=== PATIENT | female | born 1945 | race African-American/Black ===

== ENCOUNTER 2018-11-11 18:38 | Emergency (ER) | payer OTHER, MEDICARE ==
[~2018-11-11] VITALS: Ht 167.6 cm; Wt 59.0 kg
[~2018-11-11 18:38] MED LIST: AMLO5TAB4 PO; BENA40TA9 PO; METF-414 PO
[2018-11-11] MEDS ORDERED: ONDANSETRON HCL 4MG/2ML INJ IV STA (19:28)
[2018-11-11] MEDS ORDERED: SODIUM CHLORIDE 0.9% 1,000 ML IV ONE (19:28)
[2018-11-11] MEDS ORDERED: MECLIZINE 25MG TABLET PO ONE (19:30)
[2018-11-11 19:45] LABS: BASOPHILS % 0.8 % (0.0-2.0); EOSINOPHILS % 1.9 % (0.0-5.0); HEMATOCRIT. 41.4 % (36.0-48.0); HEMOGLOBIN. 14.1 g/dL (12.0-16.0); LYMPHOCYTES % 26.6 % (20.0-50.0); MEAN CORPUSCULAR HEMOGLOBIN 34.6 pg (28.0-32.0); MEAN CORPUSCULAR VOLUME 101.8 fL (81.0-99.0); MEAN PLATELET VOLUME 9.3 fl (7.4-10.4); MONOCYTES % 6.6 % (2.0-8.0); NEUTROPHILS % 64.1 % (40.0-76.0); PLATELET 202 x1000/uL (130-400); RED BLOOD CELL COUNT 4.07 mill/uL (4.2-5.4); RED CELL DISTRIBUTION WIDTH 12.4 % (11.6-14.6)
[2018-11-11 19:50] LABS: CHLORIDE 103 mEq/L (98-107)
[2018-11-11 20:58] VITALS: BP 107/58
== END 2018-11-11 21:16 | disposition home or self-care (01) ==
LOC: ER 18:38
DX: R42 Dizziness and giddiness (principal); E11.9 Type 2 diabetes mellitus without complications; I10 Essential (primary) hypertension; M10.9 Gout, unspecified; Z90.710 Acquired absence of both cervix and uterus; Z96.652 Presence of left artificial knee joint; Z79.84 Long term (current) use of oral hypoglycemic drugs
CPT/HCPCS: 36415; 71045; 80053; 83880; 84484; 85025; 93005; 96361; 96374; 99284; J2405; J7030; J8597

== ENCOUNTER 2019-01-30 15:56 | Emergency (ER) | payer OTHER, MEDICARE ==
[~2019-01-30] VITALS: Ht 167.6 cm; Wt 59.0 kg
[2019-01-30 16:13] VITALS: BP 141/68
== END 2019-01-30 19:04 | disposition left against medical advice (07) ==
LOC: ER 15:56
DX: R42 Dizziness and giddiness (principal); Z53.21 Procedure and treatment not carried out due to patient leaving prior to being seen by health care provider

== ENCOUNTER 2019-06-07 11:24 | Inpatient (IN) | payer MEDICARE, OTHER ==
[~2019-06-07] VITALS: Ht 172.7 cm; Wt 59.9 kg
[2019-06-07] MEDS ORDERED: SODIUM CHLORIDE 0.9% 1,000 ML IV ONE (11:51)
[2019-06-07] MEDS ORDERED: MECLIZINE 25MG TABLET PO ONE (12:00)
[2019-06-07] MEDS ORDERED: INSULIN REGULAR (HUMULIN R) UD 100 UNITS/ML SYR SUBCUT ONE ×2 (12:00→14:30)
[2019-06-07] MEDS ORDERED: INSULIN REGULAR (HUMULIN R) 300UNITS/3ML SUBCUT NR ×2 (12:30→15:15)
[2019-06-07 12:32] LABS: BASOPHILS % 2.9 % (0.0-2.0); EOSINOPHILS % 3.7 % (0.0-5.0); HEMATOCRIT. 43.5 % (36.0-48.0); HEMOGLOBIN. 14.7 g/dL (12.0-16.0); LYMPHOCYTES % 15.7 % (20.0-50.0); MEAN CORPUSCULAR HEMOGLOBIN 35.2 pg (28.0-32.0); MEAN PLATELET VOLUME 9.4 fl (7.4-10.4); MONOCYTES % 5.9 % (2.0-8.0); NEUTROPHILS % 71.8 % (40.0-76.0); PLATELET 180 x1000/uL (130-400); RED BLOOD CELL COUNT 4.18 mill/uL (4.2-5.4); RED CELL DISTRIBUTION WIDTH 12.7 % (11.6-14.6)
[2019-06-07 12:38] LABS: CHLORIDE 92 mEq/L (98-107)
[2019-06-07 14:59] LABS: CLARITY URINE CLEAR (CLEAR); COLOR URINE YELLOW (YELLOW); KETONES URINE 2+ (NEGATIVE); LEUKOCYTE ESTERASE URINE NEGATIVE (NEGATIVE); NITRITE URINE NEGATIVE (NEGATIVE); OCCULT BLOOD URINE NEGATIVE (NEGATIVE); PROTEIN URINE TRACE (NEGATIVE); SPECIFIC GRAVITY URINE 1.032 (1.005-1.030); UROBILINOGEN URINE 0.2 E.U./dL (0.2-1.0)
[2019-06-07 16:00] VITALS: BP 115/78
[2019-06-07] MEDS ORDERED: DEXTROSE 50% WATER 50ML SYRINGE IV PRN ×2 (16:30)
[2019-06-07] MEDS ORDERED: DIPHENHYDRAMINE 50MG/ML VIAL IV PRN (16:30)
[2019-06-07] MEDS ORDERED: ACETAMINOPHEN 325MG TABLET PO PRN (16:30)
[2019-06-07] MEDS ORDERED: CLONIDINE 0.1MG TABLET PO PRN (16:30)
[2019-06-07] MEDS ORDERED: DOCUSATE SODIUM 100MG CAPSULE PO PRN (16:30)
[2019-06-07] MEDS ORDERED: ONDANSETRON HCL 4MG/2ML INJ IV PRN (16:30)
[2019-06-07] MEDS ORDERED: MAGNESIUM/ALUMINUM HYDROXIDE/SIMETHICONE 30ML UDC PO PRN (16:30)
[2019-06-07] MEDS: BLOOD SUGAR DIAGNOSTIC STRIP TEST SCH ×2 (17:11→20:36)
[2019-06-07 17:25] VITALS: BP 115/78
[2019-06-07] MEDS: INSULIN LISPRO 100 UNITS/ML SUBCUT SCH ×2 (18:46→20:46)
[2019-06-07 20:00] VITALS: BP 93/54
[2019-06-07] MEDS: SODIUM CHLORIDE 0.9% 1,000 ML IV SCH (20:36)
[2019-06-07] MEDS ORDERED: INSULIN GLARGINE UD 100 UNITS/ML SYR SUBCUT SCH (22:00)
[2019-06-07 23:49] VITALS: BP 95/56
[2019-06-08 04:09] VITALS: BP 128/71
[2019-06-08] MEDS: BLOOD SUGAR DIAGNOSTIC STRIP TEST SCH ×4 (06:16→21:20)
[2019-06-08] MEDS: INSULIN LISPRO 100 UNITS/ML SUBCUT SCH ×4 (06:19→21:29)
[2019-06-08 08:00] VITALS: BP 129/64
[2019-06-08 08:02] LABS: EOSINOPHILS % 8.7 % (0.0-5.0); HEMATOCRIT. 38.7 % (36.0-48.0); HEMOGLOBIN. 13.4 g/dL (12.0-16.0); LYMPHOCYTES % 33.8 % (20.0-50.0); MEAN CORPUSCULAR HEMOGLOBIN 35.7 pg (28.0-32.0); MEAN CORPUSCULAR VOLUME 102.6 fL (81.0-99.0); MEAN PLATELET VOLUME 9.6 fl (7.4-10.4); MONOCYTES % 8.6 % (2.0-8.0); NEUTROPHILS % 47.9 % (40.0-76.0); PLATELET 143 x1000/uL (130-400); RED BLOOD CELL COUNT 3.77 mill/uL (4.2-5.4)
[2019-06-08] MEDS: BENAZEPRIL 10MG TABLET PO SCH (08:26)
[2019-06-08] MEDS: AMLODIPINE 5MG TABLET PO SCH (08:26)
[2019-06-08 09:16] LABS: CHLORIDE 104 mEq/L (98-107)
[2019-06-08 09:26] LABS: PHOSPHORUS 1.8 mg/dL (2.5-4.9)
[2019-06-08 12:00] VITALS: BP 104/56
[2019-06-08] MEDS: SODIUM CHLORIDE 0.9% 1,000 ML IV SCH (12:47)
[2019-06-08] MEDS ORDERED: POTASSIUM PHOS,M-BASIC-D-BASIC 15 MMOL in DEXT 5% WATER 245 ML IV SCH (14:00)
[2019-06-08] MEDS ORDERED: MAGNESIUM 2 G PREMIX 50 ML IV SCH (14:00)
[2019-06-08 16:00] VITALS: BP 138/82
[2019-06-08 20:00] VITALS: BP_SYST 131; BP_DIAS 89; BP_DIAS 91
[2019-06-08] MEDS ORDERED: INSULIN GLARGINE UD 100 UNITS/ML SYR SUBCUT SCH (22:00)
[2019-06-08 23:47] VITALS: BP 105/55
[2019-06-09 04:00] VITALS: BP 95/51
[2019-06-09] MEDS: BLOOD SUGAR DIAGNOSTIC STRIP TEST SCH (06:02)
[2019-06-09] MEDS: INSULIN LISPRO 100 UNITS/ML SUBCUT SCH (06:13)
[2019-06-09] MEDS ORDERED: INSULIN LISPRO 100 UNITS/ML SUBCUT SCH (06:45)
[2019-06-09 06:49] LABS: EOSINOPHILS % 7.1 % (0.0-5.0); HEMATOCRIT. 39.6 % (36.0-48.0); HEMOGLOBIN. 13.9 g/dL (12.0-16.0); LYMPHOCYTES % 34.7 % (20.0-50.0); MEAN CORPUSCULAR VOLUME 102.2 fL (81.0-99.0); MEAN PLATELET VOLUME 9.1 fl (7.4-10.4); MONOCYTES % 8.9 % (2.0-8.0); NEUTROPHILS % 48.3 % (40.0-76.0); PLATELET 150 x1000/uL (130-400); RED BLOOD CELL COUNT 3.87 mill/uL (4.2-5.4); RED CELL DISTRIBUTION WIDTH 12.7 % (11.6-14.6)
[2019-06-09 06:53] LABS: CHLORIDE 105 mEq/L (98-107)
[2019-06-09 07:01] LABS: PHOSPHORUS 2.7 mg/dL (2.5-4.9)
[2019-06-09 08:07] LABS: CANCER ANTIGEN 125 9.7 U/mL (0.0-38.1)
[2019-06-09 08:30] VITALS: BP 121/67
[2019-06-09] MEDS: AMLODIPINE 5MG TABLET PO SCH (10:27)
[2019-06-09] MEDS: BENAZEPRIL 10MG TABLET PO SCH (10:28)
[2019-06-09 11:12] VITALS: BP 121/67
== END 2019-06-09 12:35 | disposition home or self-care (01) | DRG 638 ==
LOC: ER 11:24 → 5WST 14:56 → EDBEDREQ 14:59 → EDBEDREQTM 14:59 → ENRESERV 15:29
PROVIDERS: ADMIT Family Medicine Adult Medicine; ATTEND Family Medicine Adult Medicine
DX: E11.10 Type 2 diabetes mellitus with ketoacidosis without coma (principal); E46 Unspecified protein-calorie malnutrition; E87.1 Hypo-osmolality and hyponatremia; I10 Essential (primary) hypertension; E88.89 Other specified metabolic disorders; D75.89 Other specified diseases of blood and blood-forming organs; Z79.84 Long term (current) use of oral hypoglycemic drugs; Z90.710 Acquired absence of both cervix and uterus; Z79.899 Other long term (current) drug therapy; Z68.20 Body mass index [BMI] 20.0-20.9, adult
CPT/HCPCS: 36415; 71045; 71250; 74176; 80048; 80076; 81003; 82010; 82105; 82378; 82962; 83036; 83735; 83880; 84100; 84443; 84484; 86301; 86304; 93005; 93970; 96372; 97161; 99285; J1815; J3475; J3490; J7030; J7060; J8597

== ENCOUNTER 2020-11-02 16:52 | Inpatient (IN) | payer MEDICARE, OTHER ==
[~2020-11-02] VITALS: Ht 162.6 cm; Wt 62.1 kg
[2020-11-02] MEDS ORDERED: ACETAMINOPHEN 325MG TABLET PO STA (17:05)
[2020-11-02] MEDS ORDERED: CEFTRIAXONE 1 G PREMIX 50 ML IV ONE (17:15)
[2020-11-02] MEDS ORDERED: DEXAMETHASONE 4MG/ML 1ML VIAL IV ONE (17:15)
[2020-11-02 18:15] LABS: HEMATOCRIT. 39.7 % (36.0-48.0); HEMOGLOBIN. 13.2 g/dL (12.0-16.0); MEAN CORPUSCULAR HEMOGLOBIN 33.1 pg (28.0-32.0); MEAN CORPUSCULAR VOLUME 99.6 fL (81.0-99.0); MEAN PLATELET VOLUME 9.1 fl (7.4-10.4); PLATELET 170 x1000/uL (130-400); RED BLOOD CELL COUNT 3.98 mill/uL (4.2-5.4); RED CELL DISTRIBUTION WIDTH 12.7 % (11.6-14.6)
[2020-11-02 18:22] LABS: CHLORIDE 95 mEq/L (98-107)
[2020-11-02 18:25] LABS: ETHANOL BLOOD < 10 mg/dL
[2020-11-02 18:28] LABS: LDL CHOLESTEROL 81 mg/dL (5-100)
[2020-11-02 19:05] LABS: INR 1.1; PROTHROMBIN TIME 11.2 sec (9.6-11.0)
[2020-11-02 19:29] LABS: CLARITY URINE CLEAR (CLEAR); COLOR URINE YELLOW (YELLOW); KETONES URINE 1+ (NEGATIVE); LEUKOCYTE ESTERASE URINE NEGATIVE (NEGATIVE); NITRITE URINE NEGATIVE (NEGATIVE); OCCULT BLOOD URINE NEGATIVE (NEGATIVE); PH URINE 5.5 (4.5-8.0); PROTEIN URINE 1+ (NEGATIVE); SPECIFIC GRAVITY URINE 1.039 (1.005-1.030); UROBILINOGEN URINE 0.2 E.U./dL (0.2-1.0)
[2020-11-02] MEDS ORDERED: IOHEXOL-350 100 ML BOTTLE ONE (20:56)
[2020-11-02 21:30] LABS: PLATELET ESTIMATE NORMAL
[2020-11-02 21:57] LABS: CHLORIDE 98 mEq/L (98-107)
[2020-11-02] MEDS ORDERED: INSULIN LISPRO (HUMALOG) 300UNITS/3ML VIAL SUBCUT NR (23:15)
[2020-11-02] MEDS ORDERED: INSULIN LISPRO 100 UNITS/ML SUBCUT NR (23:42)
[2020-11-02] MEDS: SODIUM CHLORIDE 0.9% 1,000 ML IV SCH (23:47)
[2020-11-03] MEDS ORDERED: INSULIN GLARGINE UD 100 UNITS/ML SYR SUBCUT SCH (01:00)
[2020-11-03] MEDS ORDERED: SODIUM CHLORIDE 0.9% 1000ML BAG (SEPSIS BOLUS) IV SCH (03:00)
[2020-11-03] MEDS: AZITHROMYCIN 500 MG in DEXT 5% WATER 250 ML IV SCH (06:50)
[2020-11-03] MEDS: INSULIN LISPRO 100 UNITS/ML SUBCUT SCH ×3 (07:00→17:00)
[2020-11-03] MEDS: BLOOD SUGAR DIAGNOSTIC STRIP TEST SCH ×4 (08:00→21:50)
[2020-11-03] MEDS: ASPIRIN 81MG TABLET PO SCH (09:00)
[2020-11-03] MEDS: ENOXAPARIN 40MG/0.4ML SYR SUBCUT SCH (09:00)
[2020-11-03] MEDS: INSULIN GLARGINE UD 100 UNITS/ML SYR SUBCUT SCH (10:00)
[2020-11-03] MEDS: SODIUM CHLORIDE 0.9% 1,000 ML IV SCH (12:52)
[2020-11-04] MEDS: SODIUM CHLORIDE 0.9% 1,000 ML IV SCH ×2 (03:00→14:55)
[2020-11-04] MEDS: BLOOD SUGAR DIAGNOSTIC STRIP TEST SCH ×4 (04:28→21:00)
[2020-11-04] MEDS: INSULIN LISPRO 100 UNITS/ML SUBCUT SCH ×5 (04:29→21:00)
[2020-11-04] MEDS: INSULIN GLARGINE UD 100 UNITS/ML SYR SUBCUT SCH ×2 (04:29→09:54)
[2020-11-04] MEDS: DEXTROSE 50% WATER 50ML SYRINGE IV PRN ×3 (04:55→07:50)
[2020-11-04] MEDS: ATORVASTATIN CALCIUM 40MG TABLET PO SCH ×2 (05:03→22:00)
[2020-11-04] MEDS: AZITHROMYCIN 500 MG in DEXT 5% WATER 250 ML IV SCH (05:04)
[2020-11-04] MEDS: ASPIRIN 81MG TABLET PO SCH (09:54)
[2020-11-04] MEDS: ENOXAPARIN 40MG/0.4ML SYR SUBCUT SCH (09:54)
[2020-11-04 21:03] LABS: CHLORIDE 110 mEq/L (98-107)
[2020-11-05] MEDS: INSULIN LISPRO 100 UNITS/ML SUBCUT SCH ×4 (06:27→22:00)
[2020-11-05] MEDS: BLOOD SUGAR DIAGNOSTIC STRIP TEST SCH ×4 (06:27→21:26)
[2020-11-05 06:41] LABS: BASOPHILS % 0.7 % (0.0-2.0); HEMATOCRIT. 43.1 % (36.0-48.0); HEMOGLOBIN. 14.4 g/dL (12.0-16.0); LYMPHOCYTES % 24.1 % (20.0-50.0); MEAN CORPUSCULAR HEMOGLOBIN 33.6 pg (28.0-32.0); MEAN CORPUSCULAR VOLUME 100.2 fL (81.0-99.0); MEAN PLATELET VOLUME 9.3 fl (7.4-10.4); NEUTROPHILS % 61.2 % (40.0-76.0); PLATELET 158 x1000/uL (130-400); RED CELL DISTRIBUTION WIDTH 13.1 % (11.6-14.6)
[2020-11-05 06:48] LABS: CHLORIDE 109 mEq/L (98-107)
[2020-11-05] MEDS ORDERED: POTASSIUM CHLORIDE 20MEQ TABLET SR PO NR (09:15)
[2020-11-05 12:00] VITALS: BP 154/118
[2020-11-05] MEDS: ASPIRIN 81MG TABLET PO SCH (12:42)
[2020-11-05] MEDS: ENOXAPARIN 40MG/0.4ML SYR SUBCUT SCH (12:42)
[2020-11-05 16:00] VITALS: BP 131/63
[2020-11-05 16:51] VITALS: BP 154/86
[2020-11-05 20:00] VITALS: BP 100/45
[2020-11-05] MEDS: ATORVASTATIN CALCIUM 40MG TABLET PO SCH (21:23)
[2020-11-06] VITALS: BP 108/52
[2020-11-06] MEDS: SODIUM CHLORIDE 0.9% 1,000 ML IV SCH ×2 (02:37→21:30)
[2020-11-06 04:00] VITALS: BP 135/53
[2020-11-06] MEDS: INSULIN LISPRO 100 UNITS/ML SUBCUT SCH ×4 (06:46→21:31)
[2020-11-06] MEDS: BLOOD SUGAR DIAGNOSTIC STRIP TEST SCH ×4 (06:47→21:31)
[2020-11-06 08:00] VITALS: BP 121/66
[2020-11-06] MEDS: ENOXAPARIN 40MG/0.4ML SYR SUBCUT SCH (09:18)
[2020-11-06] MEDS: ASPIRIN 81MG TABLET PO SCH (09:18)
[2020-11-06 12:00] VITALS: BP 135/70
[2020-11-06 16:00] VITALS: BP 117/60
[2020-11-06 20:00] VITALS: BP 131/77
[2020-11-06] MEDS: ATORVASTATIN CALCIUM 40MG TABLET PO SCH (21:30)
[2020-11-06] MEDS: INSULIN GLARGINE UD 100 UNITS/ML SYR SUBCUT SCH (22:47)
[2020-11-07] VITALS: BP 143/67
[2020-11-07 04:00] VITALS: BP 155/69
[2020-11-07] MEDS: INSULIN LISPRO 100 UNITS/ML SUBCUT SCH ×4 (06:36→21:40)
[2020-11-07] MEDS: BLOOD SUGAR DIAGNOSTIC STRIP TEST SCH ×4 (06:37→21:41)
[2020-11-07 08:00] VITALS: BP 135/85
[2020-11-07] MEDS: ASPIRIN 81MG TABLET PO SCH (10:58)
[2020-11-07] MEDS: ENOXAPARIN 40MG/0.4ML SYR SUBCUT SCH (10:59)
[2020-11-07] MEDS: INSULIN GLARGINE UD 100 UNITS/ML SYR SUBCUT SCH ×2 (11:01→21:40)
[2020-11-07] MEDS: SODIUM CHLORIDE 0.9% 1,000 ML IV SCH ×2 (11:10→23:53)
[2020-11-07 12:00] VITALS: BP 128/115
[2020-11-07 16:00] VITALS: BP 145/74
[2020-11-07 20:00] VITALS: BP 139/64
[2020-11-07] MEDS: ATORVASTATIN CALCIUM 40MG TABLET PO SCH (21:39)
[2020-11-07] MEDS: LORAZEPAM 2MG/ML CPJ IV PRN (21:42)
[2020-11-08] VITALS: BP 127/57
[2020-11-08 04:00] VITALS: BP 147/72
[2020-11-08] MEDS: BLOOD SUGAR DIAGNOSTIC STRIP TEST SCH ×2 (06:42→11:45)
[2020-11-08] MEDS: INSULIN LISPRO 100 UNITS/ML SUBCUT SCH ×2 (06:42→13:47)
[2020-11-08 08:00] VITALS: BP 117/63
[2020-11-08] MEDS ORDERED: LANTUSUD SUBCUT (08:33)
[2020-11-08] MEDS: ENOXAPARIN 40MG/0.4ML SYR SUBCUT SCH (10:32)
[2020-11-08] MEDS: LORAZEPAM 2MG/ML CPJ IV PRN (10:33)
[2020-11-08] MEDS: INSULIN GLARGINE UD 100 UNITS/ML SYR SUBCUT SCH (10:34)
[2020-11-08] MEDS: ASPIRIN 81MG TABLET PO SCH (10:38)
[2020-11-08 12:00] VITALS: BP 152/63
[2020-11-08] MEDS: SODIUM CHLORIDE 0.9% 1,000 ML IV SCH (13:48)
[2020-11-08] MEDS ORDERED: INFLUENZA VACCINE 05/PF 0.5 ML VIAL IM ONE (14:30)
[2020-11-08 14:40] VITALS: BP 152/63
[2020-11-08 16:00] VITALS: BP 146/64
== END 2020-11-08 17:30 | disposition home health service (06) | DRG 637 ==
LOC: ER 16:52 → MICUSO 21:09 → EDBEDREQSVC 22:07 → EDBEDREQTM 22:07 → EDBEDREQ 22:07 → 5WST 11-05 07:55
PROVIDERS: ADMIT Internal Medicine; ATTEND Internal Medicine
DX: E11.65 Type 2 diabetes mellitus with hyperglycemia (principal); G93.41 Metabolic encephalopathy; E87.1 Hypo-osmolality and hyponatremia; E87.2 Acidosis; R47.01 Aphasia; E87.8 Other disorders of electrolyte and fluid balance, not elsewhere classified; I10 Essential (primary) hypertension; F03.90 Unspecified dementia, unspecified severity, without behavioral disturbance, psychotic disturbance, mood disturbance, and anxiety; Z90.710 Acquired absence of both cervix and uterus; Z79.84 Long term (current) use of oral hypoglycemic drugs; Z79.899 Other long term (current) drug therapy; Z20.822 Contact with and (suspected) exposure to COVID-19; Z23 Encounter for immunization
CPT/HCPCS: 36415; 70496; 70551; 71045; 80048; 80053; 80076; 80320; 81003; 82962; 83036; 83605; 83721; 84145; 84484; 85025; 87635; 90686; 93005; 97116; 97162; 97530; 99285; J0456; J0696; J1100; J1650; J1815; J2060; J7060; Q9967; G0480

== ENCOUNTER 2020-11-08 18:05 | Emergency (ER) | payer OTHER ==
[~2020-11-08] VITALS: Ht 167.6 cm; Wt 68.0 kg
[~2020-11-08 18:05] MED LIST changes: +LANTUSUD SUBCUT
[2020-11-08 22:00] LABS: HEMOGLOBIN. 12.8 g/dL (12.0-16.0); MEAN CORPUSCULAR HEMOGLOBIN 34.5 pg (28.0-32.0); MEAN CORPUSCULAR VOLUME 99.9 fL (81.0-99.0); MEAN PLATELET VOLUME 8.8 fl (7.4-10.4); PLATELET 159 x1000/uL (130-400); RED BLOOD CELL COUNT 3.71 mill/uL (4.2-5.4)
[2020-11-08 22:04] LABS: CHLORIDE 104 mEq/L (98-107)
[2020-11-08 22:31] LABS: PLATELET ESTIMATE NORMAL
[2020-11-09 16:32] VITALS: BP 154/79
== END 2020-11-09 16:34 | disposition home or self-care (01) ==
LOC: ER 18:05
DX: R53.1 Weakness (principal); E11.9 Type 2 diabetes mellitus without complications
CPT/HCPCS: 36415; 80048; 82962; 85025; 93005; 99285

== ENCOUNTER 2020-11-28 11:54 | Inpatient (IN) | payer OTHER ==
[~2020-11-28] VITALS: Ht 167.6 cm; Wt 69.4 kg
[2020-11-28] MEDS ORDERED: SODIUM CHLORIDE 0.9% 1,000 ML IV ONE (12:45)
[2020-11-28 12:46] LABS: BASOPHILS % 0.7 % (0.0-2.0); EOSINOPHILS % 1.1 % (0.0-5.0); HEMATOCRIT. 38.9 % (36.0-48.0); LYMPHOCYTES % 20.7 % (20.0-50.0); MEAN CORPUSCULAR HEMOGLOBIN 33.6 pg (28.0-32.0); MEAN CORPUSCULAR VOLUME 100.8 fL (81.0-99.0); MEAN PLATELET VOLUME 8.6 fl (7.4-10.4); MONOCYTES % 8.4 % (2.0-8.0); NEUTROPHILS % 69.1 % (40.0-76.0); PLATELET 228 x1000/uL (130-400); RED BLOOD CELL COUNT 3.85 mill/uL (4.2-5.4); RED CELL DISTRIBUTION WIDTH 13.5 % (11.6-14.6)
[2020-11-28 12:53] LABS: CHLORIDE 93 mEq/L (98-107)
[2020-11-28] MEDS ORDERED: INSULIN REGULAR (HUMULIN R) 300UNITS/3ML VIAL SUBCUT ONE (13:15)
[2020-11-28] MEDS ORDERED: DEXTROSE 50% WATER 50ML SYRINGE IV PRN (16:45)
[2020-11-28] MEDS ORDERED: ONDANSETRON HCL 4MG/2ML INJ IV PRN (16:45)
[2020-11-28] MEDS ORDERED: TRAMADOL 50MG TABLET PO PRN (16:45)
[2020-11-28] MEDS ORDERED: DOCUSATE SODIUM 100MG CAPSULE PO PRN (16:45)
[2020-11-28] MEDS ORDERED: MAGNESIUM/ALUMINUM HYDROXIDE/SIMETHICONE 30ML UDC PO PRN (16:45)
[2020-11-28] MEDS ORDERED: NITROGLYCERIN 0.4MG TABLET SL SL PRN (16:45)
[2020-11-28] MEDS ORDERED: ACETAMINOPHEN 325MG TABLET PO PRN ×2 (16:45)
[2020-11-28] MEDS ORDERED: CLONIDINE 0.1MG TABLET PO PRN (16:45)
[2020-11-28] MEDS ORDERED: GUAIFENESIN 200MG/10ML SUGAR FREE UDC PO PRN (16:45)
[2020-11-28] MEDS ORDERED: KETOROLAC 15MG/ML VIAL IV PRN (16:45)
[2020-11-28] MEDS ORDERED: IPRATROPIUM/ALBUTEROL 0.5-3(2.5)MG/3ML NEB NEB PRN (16:45)
[2020-11-28] MEDS ORDERED: LEVOFLOXACIN 500MG PREMIX 100 ML IV SCH (17:00)
[2020-11-28 17:33] LABS: T4 FREE 1.38 ng/dL (0.76-1.46)
[2020-11-28] MEDS: ENOXAPARIN 40MG/0.4ML SYR SUBCUT SCH (17:34)
[2020-11-28] MEDS: SODIUM CHLORIDE 0.9% 1,000 ML IV SCH (17:34)
[2020-11-28] MEDS: BLOOD SUGAR DIAGNOSTIC STRIP TEST SCH ×2 (17:34→21:00)
[2020-11-28 17:51] LABS: FOLIC ACID (FOLATE) SERUM >20 ng/mL ng/mL (>5.38)
[2020-11-28 18:02] LABS: VITAMIN B12 SERUM 618 pg/mL (211-911)
[2020-11-28] MEDS: INSULIN LISPRO 100 UNITS/ML SUBCUT SCH ×3 (18:20→21:00)
[2020-11-28 20:30] LABS: CLARITY URINE CLEAR (CLEAR); COLOR URINE YELLOW (YELLOW); KETONES URINE NEGATIVE (NEGATIVE); LEUKOCYTE ESTERASE URINE NEGATIVE (NEGATIVE); NITRITE URINE NEGATIVE (NEGATIVE); OCCULT BLOOD URINE NEGATIVE (NEGATIVE); PROTEIN URINE NEGATIVE (NEGATIVE); UROBILINOGEN URINE 0.2 E.U./dL (0.2-1.0)
[2020-11-28 20:59] LABS: METHADONE URINE SCREEN NEGATIVE (NEGATIVE); OPIATES URINE SCREEN NEGATIVE (NEGATIVE); PHENCYCLIDINE URINE SCREEN NEGATIVE (NEGATIVE)
[2020-11-28 21:00] LABS: *AMPHETAMINES SCREEN URINE NEGATIVE (NEGATIVE); *BARBITURATES SCREEN URINE NEGATIVE (NEGATIVE); *BENZODIAZEPINES SCREEN URINE NEGATIVE (NEGATIVE); *COCAINE SCREEN URINE NEGATIVE (NEGATIVE); CANNABINOID URINE SCREEN NEGATIVE (NEGATIVE)
[2020-11-28] MEDS: FAMOTIDINE 20MG TABLET PO SCH (21:00)
[2020-11-28] MEDS: ASCORBIC ACID 500 MG TABLET PO SCH (21:00)
[2020-11-28] MEDS: LISINOPRIL 20MG TABLET PO SCH (21:00)
[2020-11-28] MEDS ORDERED: INSULIN GLARGINE UD 100 UNITS/ML SYR SUBCUT SCH (22:00)
[2020-11-28 23:49] LABS: CREATINE KINASE 62 IU/L (26-192)
[2020-11-28 23:50] LABS: CREATINE KINASE MB FRACTION 1.3 ng/mL (0.5-3.6)
[2020-11-29] VITALS (8 sets, daily range): BP systolic 89–141; BP diastolic 43–70
[2020-11-29] MEDS: SODIUM CHLORIDE 0.9% 1,000 ML IV SCH ×2 (03:12→12:37)
[2020-11-29 05:10] LABS: BASOPHILS % 0.4 % (0.0-2.0); EOSINOPHILS % 2.1 % (0.0-5.0); HEMATOCRIT. 31.4 % (36.0-48.0); HEMOGLOBIN. 10.8 g/dL (12.0-16.0); LYMPHOCYTES % 26.6 % (20.0-50.0); MONOCYTES % 9.9 % (2.0-8.0); PLATELET 198 x1000/uL (130-400); RED BLOOD CELL COUNT 3.17 mill/uL (4.2-5.4); RED CELL DISTRIBUTION WIDTH 13.3 % (11.6-14.6)
[2020-11-29 05:13] LABS: CHLORIDE 107 mEq/L (98-107)
[2020-11-29 05:32] LABS: PHOSPHORUS 2.4 mg/dL (2.5-4.9)
[2020-11-29 05:34] LABS: CREATINE KINASE 55 IU/L (26-192)
[2020-11-29 05:37] LABS: CREATINE KINASE MB FRACTION 1.3 ng/mL (0.5-3.6)
[2020-11-29] MEDS: INSULIN LISPRO 100 UNITS/ML SUBCUT SCH ×8 (06:30→21:00)
[2020-11-29] MEDS: BLOOD SUGAR DIAGNOSTIC STRIP TEST SCH ×4 (06:30→21:41)
[2020-11-29] MEDS: ASPIRIN 325MG EC TABLET PO SCH (10:08)
[2020-11-29] MEDS: CHOLECALCIFEROL (D3) 1000 UNIT TABLET PO SCH (10:08)
[2020-11-29] MEDS: LISINOPRIL 20MG TABLET PO SCH ×2 (10:09→21:00)
[2020-11-29] MEDS: ASCORBIC ACID 500 MG TABLET PO SCH ×2 (10:09→21:39)
[2020-11-29] MEDS: ZINC SULFATE 220 MG ( 50 ) CAPSULE PO SCH (10:09)
[2020-11-29] MEDS ORDERED: LEVOFLOXACIN 750MG PREMIX 150 ML IV SCH (16:00)
[2020-11-29] MEDS: ENOXAPARIN 40MG/0.4ML SYR SUBCUT SCH (16:35)
[2020-11-29] MEDS: FAMOTIDINE 20MG TABLET PO SCH (21:39)
[2020-11-29] MEDS: INSULIN GLARGINE UD 100 UNITS/ML SYR SUBCUT SCH (21:44)
[2020-11-30] VITALS (9 sets, daily range): BP systolic 92–153; BP diastolic 49–78
[2020-11-30] MEDS: ZOLPIDEM TARTRATE 5MG TABLET PO PRN (00:01)
[2020-11-30] MEDS: SODIUM CHLORIDE 0.9% 1,000 ML IV SCH ×3 (00:17→23:30)
[2020-11-30] MEDS: INSULIN LISPRO 100 UNITS/ML SUBCUT SCH ×7 (07:30→21:00)
[2020-11-30] MEDS: BLOOD SUGAR DIAGNOSTIC STRIP TEST SCH ×4 (07:30→21:00)
[2020-11-30] MEDS: ASPIRIN 325MG EC TABLET PO SCH (09:19)
[2020-11-30] MEDS: CHOLECALCIFEROL (D3) 1000 UNIT TABLET PO SCH (09:19)
[2020-11-30] MEDS: ASCORBIC ACID 500 MG TABLET PO SCH ×2 (09:20→23:26)
[2020-11-30] MEDS: ZINC SULFATE 220 MG ( 50 ) CAPSULE PO SCH (09:20)
[2020-11-30] MEDS: LISINOPRIL 20MG TABLET PO SCH ×2 (09:20→21:00)
[2020-11-30] MEDS: ENOXAPARIN 40MG/0.4ML SYR SUBCUT SCH (17:36)
[2020-11-30] MEDS: FAMOTIDINE 20MG TABLET PO SCH (23:27)
[2020-11-30] MEDS: INSULIN GLARGINE UD 100 UNITS/ML SYR SUBCUT SCH (23:28)
[2020-12-01] VITALS (7 sets, daily range): BP systolic 108–145; BP diastolic 54–74
[2020-12-01] MEDS: INSULIN LISPRO 100 UNITS/ML SUBCUT SCH ×7 (07:30→22:06)
[2020-12-01] MEDS: BLOOD SUGAR DIAGNOSTIC STRIP TEST SCH ×4 (07:30→21:00)
[2020-12-01] MEDS: CHOLECALCIFEROL (D3) 1000 UNIT TABLET PO SCH (08:46)
[2020-12-01] MEDS: ASCORBIC ACID 500 MG TABLET PO SCH ×2 (08:46→21:44)
[2020-12-01] MEDS: ZINC SULFATE 220 MG ( 50 ) CAPSULE PO SCH (08:47)
[2020-12-01] MEDS: ASPIRIN 325MG EC TABLET PO SCH (08:47)
[2020-12-01] MEDS: LISINOPRIL 20MG TABLET PO SCH ×2 (08:47→21:00)
[2020-12-01] MEDS: SODIUM CHLORIDE 0.9% 1,000 ML IV SCH (15:00)
[2020-12-01] MEDS ORDERED: LEVOFLOXACIN 250MG TABLET PO SCH (16:00)
[2020-12-01] MEDS: ENOXAPARIN 40MG/0.4ML SYR SUBCUT SCH (18:09)
[2020-12-01] MEDS: FAMOTIDINE 20MG TABLET PO SCH (21:44)
[2020-12-01] MEDS: INSULIN GLARGINE UD 100 UNITS/ML SYR SUBCUT SCH (22:34)
[2020-12-02] VITALS: BP 112/63
[2020-12-02] MEDS: ZOLPIDEM TARTRATE 5MG TABLET PO PRN ×2 (00:30→23:57)
[2020-12-02] MEDS: SODIUM CHLORIDE 0.9% 1,000 ML IV SCH ×3 (01:00→21:00)
[2020-12-02 04:00] VITALS: BP 94/44
[2020-12-02] MEDS: INSULIN LISPRO 100 UNITS/ML SUBCUT SCH ×7 (07:30→22:05)
[2020-12-02 08:00] VITALS: BP 134/77
[2020-12-02] MEDS: BLOOD SUGAR DIAGNOSTIC STRIP TEST SCH ×4 (08:28→21:00)
[2020-12-02] MEDS: LISINOPRIL 20MG TABLET PO SCH ×2 (09:00→21:00)
[2020-12-02] MEDS: ZINC SULFATE 220 MG ( 50 ) CAPSULE PO SCH (09:00)
[2020-12-02] MEDS: CHOLECALCIFEROL (D3) 1000 UNIT TABLET PO SCH (09:00)
[2020-12-02] MEDS: ASCORBIC ACID 500 MG TABLET PO SCH ×2 (09:00→21:39)
[2020-12-02] MEDS: ASPIRIN 325MG EC TABLET PO SCH (09:00)
[2020-12-02 12:00] VITALS: BP 101/48
[2020-12-02 16:00] VITALS: BP 126/87
[2020-12-02] MEDS: ENOXAPARIN 40MG/0.4ML SYR SUBCUT SCH (18:49)
[2020-12-02 20:00] VITALS: BP 126/57
[2020-12-02] MEDS: FAMOTIDINE 20MG TABLET PO SCH (21:39)
[2020-12-02] MEDS: INSULIN GLARGINE UD 100 UNITS/ML SYR SUBCUT SCH (21:47)
[2020-12-03] VITALS: BP 118/75
[2020-12-03 04:00] VITALS: BP 128/57
[2020-12-03] MEDS: SODIUM CHLORIDE 0.9% 1,000 ML IV SCH (07:00)
[2020-12-03] MEDS: BLOOD SUGAR DIAGNOSTIC STRIP TEST SCH (07:30)
[2020-12-03 08:00] VITALS: BP 107/54
[2020-12-03] MEDS: INSULIN LISPRO 100 UNITS/ML SUBCUT SCH (08:47)
[2020-12-03 09:49] VITALS: BP 107/54
== END 2020-12-03 11:15 | disposition home or self-care (01) | DRG 91 ==
LOC: ER 12:13 → MICUSO 15:53 → SUPCPDRO 17:15 → 5EST 11-29 07:47
PROVIDERS: ADMIT Internal Medicine; ATTEND Internal Medicine
DX: G92 Toxic encephalopathy (principal); E11.00 Type 2 diabetes mellitus with hyperosmolarity without nonketotic hyperglycemic-hyperosmolar coma (NKHHC); E87.1 Hypo-osmolality and hyponatremia; E11.65 Type 2 diabetes mellitus with hyperglycemia; I10 Essential (primary) hypertension; F03.90 Unspecified dementia, unspecified severity, without behavioral disturbance, psychotic disturbance, mood disturbance, and anxiety; Z78.1 Physical restraint status; Z79.899 Other long term (current) drug therapy; Z90.710 Acquired absence of both cervix and uterus
CPT/HCPCS: 36415; 71045; 80053; 80061; 80305; 81003; 82550; 82553; 82607; 82746; 82962; 83036; 83540; 83550; 83615; 83735; 84100; 84145; 84439; 84443; 84484; 85025; 85379; 93005; 93306; 93970; 97116; 97162; 97166; 97530; 99285; J1650; J1815; J1956; J7030

== ENCOUNTER 2021-03-13 11:21 | Emergency (ER) | payer OTHER ==
[~2021-03-13] VITALS: Ht 162.6 cm; Wt 52.0 kg
[2021-03-13 15:32] VITALS: BP 144/84
== END 2021-03-13 16:35 | disposition home or self-care (01) ==
LOC: ER 11:27
DX: F43.0 Acute stress reaction (principal); F03.90 Unspecified dementia, unspecified severity, without behavioral disturbance, psychotic disturbance, mood disturbance, and anxiety; M19.90 Unspecified osteoarthritis, unspecified site; I10 Essential (primary) hypertension; E11.9 Type 2 diabetes mellitus without complications; K21.9 Gastro-esophageal reflux disease without esophagitis; F41.9 Anxiety disorder, unspecified; Z60.2 Problems related to living alone; Z87.891 Personal history of nicotine dependence; Z90.710 Acquired absence of both cervix and uterus; Z79.4 Long term (current) use of insulin
CPT/HCPCS: 99283

== ENCOUNTER 2021-03-21 11:40 | Emergency (ER) | payer OTHER ==
[~2021-03-21] VITALS: Ht 172.7 cm; Wt 69.0 kg
[2021-03-21] MEDS ORDERED: SODIUM CHLORIDE 0.9% 1,000 ML IV ONE (12:00)
[2021-03-21 12:27] LABS: BASOPHILS % 1.1 % (0.0-2.0); EOSINOPHILS % 1.4 % (0.0-5.0); HEMATOCRIT. 36.2 % (36.0-48.0); HEMOGLOBIN. 12.3 g/dL (12.0-16.0); LYMPHOCYTES % 29.6 % (20.0-50.0); MEAN CORPUSCULAR HEMOGLOBIN 31.2 pg (28.0-32.0); MEAN CORPUSCULAR VOLUME 91.4 fL (81.0-99.0); MEAN PLATELET VOLUME 9.7 fl (7.4-10.4); MONOCYTES % 7.1 % (2.0-8.0); NEUTROPHILS % 60.8 % (40.0-76.0); PLATELET 131 x1000/uL (130-400); RED BLOOD CELL COUNT 3.95 mill/uL (4.2-5.4)
[2021-03-21 12:34] LABS: CHLORIDE 103 mEq/L (98-107)
[2021-03-21 12:42] LABS: PHOSPHORUS 2.7 mg/dL (2.5-4.9)
[2021-03-21 12:47] LABS: BG CARBOXYHEMOGLOBIN 0.6 % (0.5-1.5); BG DEOXYHEMOGLOBIN 3.2 % (0.0-5.0); BG FRACTION INSPIRED OXYGEN 21; BG HCO3 ACT 25.3 mmol/L (22.0-26.0); BG METHEMOGLOBIN 0.2 % (0.0-1.5); BG OXYGEN SATURATION 96.8 % (92.0-98.5); BG PCO2 39.1 mmHg (35.0-45.0); BG PH 7.429 (7.350-7.450); BG PO2 92.1 mmHg (75.0-100.0); BG SAMPLE SITE RIGHT RADIAL; BG TOTAL HEMOGLOBIN 13.3 g/dL (12.0-18.0); BG VENT MODE ROOM AIR
[2021-03-21] MEDS ORDERED: INSULIN REGULAR (HUMULIN R) 300UNITS/3ML VIAL SUBCUT NR ×2 (13:00→17:15)
[2021-03-21 13:29] LABS: CLARITY URINE CLEAR (CLEAR); COLOR URINE YELLOW (YELLOW); KETONES URINE 1+ (NEGATIVE); LEUKOCYTE ESTERASE URINE NEGATIVE (NEGATIVE); NITRITE URINE NEGATIVE (NEGATIVE); OCCULT BLOOD URINE NEGATIVE (NEGATIVE); PH URINE 6.5 (4.5-8.0); PROTEIN URINE 1+ (NEGATIVE); SPECIFIC GRAVITY URINE 1.034 (1.005-1.030); UROBILINOGEN URINE 0.2 E.U./dL (0.2-1.0)
[2021-03-21] MEDS ORDERED: CEPH500C2 MT (14:11)
[2021-03-21 17:00] VITALS: BP 130/60
== END 2021-03-21 17:17 | disposition home or self-care (01) ==
LOC: ER 11:40
DX: E11.65 Type 2 diabetes mellitus with hyperglycemia (principal); N39.0 Urinary tract infection, site not specified; I10 Essential (primary) hypertension; F03.90 Unspecified dementia, unspecified severity, without behavioral disturbance, psychotic disturbance, mood disturbance, and anxiety; F41.9 Anxiety disorder, unspecified; M19.90 Unspecified osteoarthritis, unspecified site; K21.9 Gastro-esophageal reflux disease without esophagitis; F17.210 Nicotine dependence, cigarettes, uncomplicated; Z91.14 Patient's other noncompliance with medication regimen; Z90.710 Acquired absence of both cervix and uterus; Z79.84 Long term (current) use of oral hypoglycemic drugs
CPT/HCPCS: 36415; 36600; 71045; 80053; 81003; 82375; 82805; 82962; 83735; 84100; 84484; 85025; 93005; 96360; 96361; 99285; J1815; J7030

== ENCOUNTER 2022-09-26 11:39 | Inpatient (IN) | payer OTHER ==
[~2022-09-26] VITALS: Ht 165.1 cm; Wt 50.1 kg
[~2022-09-26 11:39] MED LIST changes: -BENA40TA9 PO; +BENA40TA91 PO; +CEPH500C2 MT
[2022-09-26] MEDS ORDERED: SODIUM CHLORIDE 0.9% 1,000 ML IV ONE (12:15)
[2022-09-26 14:22] LABS: BASOPHILS % 0.6 % (0.0-2.0); EOSINOPHILS % 1.1 % (0.0-5.0); HEMATOCRIT. 37.7 % (36.0-48.0); HEMOGLOBIN. 12.9 g/dL (12.0-16.0); LYMPHOCYTES % 19.3 % (20.0-50.0); MEAN CORPUSCULAR HEMOGLOBIN 33.5 pg (28.0-32.0); MONOCYTES % 7.7 % (2.0-8.0); NEUTROPHILS % 71.3 % (40.0-76.0); PLATELET 116 x1000/uL (130-400); RED BLOOD CELL COUNT 3.85 mill/uL (4.2-5.4); RED CELL DISTRIBUTION WIDTH 12.7 % (11.6-14.6)
[2022-09-26 14:29] LABS: CHLORIDE 102 mEq/L (98-107)
[2022-09-26 14:41] LABS: INR 1.2; PARTIAL THROMBOPLASTIN TIME 25.9 sec (23.4-31.0); PROTHROMBIN TIME 12.3 sec (9.6-11.0)
[2022-09-26 15:31] LABS: BETA HYDROXYBUTYRATE < 0.1 mMol/L (0.0-0.3)
[2022-09-26 15:55] LABS: CLARITY URINE CLEAR (CLEAR); COLOR URINE YELLOW (YELLOW); KETONES URINE NEGATIVE (NEGATIVE); LEUKOCYTE ESTERASE URINE TRACE (NEGATIVE); NITRITE URINE NEGATIVE (NEGATIVE); OCCULT BLOOD URINE NEGATIVE (NEGATIVE); PH URINE 6.5 (4.5-8.0); PROTEIN URINE TRACE (NEGATIVE); SPECIFIC GRAVITY URINE 1.009 (1.005-1.030)
[2022-09-26] MEDS ORDERED: CEFTRIAXONE 1 G PREMIX 50 ML IV ONE (16:30)
[2022-09-26] MEDS ORDERED: ASPIRIN 325MG EC TABLET PO ONE (16:30)
[2022-09-26 20:00] VITALS: BP 163/72
[2022-09-26 20:30] VITALS: BP 163/72
[2022-09-26] MEDS ORDERED: HYDRALAZINE 20MG/ML VIAL IV PRN (22:00)
[2022-09-26] MEDS ORDERED: HYOS-16 SL (23:06)
[2022-09-26] MEDS ORDERED: FURO20TA4 PO (23:06)
[2022-09-26] MEDS ORDERED: ROSU20TA2 PO (23:06)
[2022-09-26] MEDS ORDERED: POTA10CA42 PO (23:06)
[2022-09-26] MEDS ORDERED: LISI20TA31 PO (23:06)
[2022-09-26] MEDS ORDERED: QUET25TA36 PO (23:06)
[2022-09-26] MEDS ORDERED: DEXTROSE 50% WATER 50ML SYRINGE IV PRN (23:30)
[2022-09-26 23:32] LABS: CREATINE KINASE MB FRACTION 1.2 ng/mL (0.5-3.6)
[2022-09-27] VITALS: BP 143/63
[2022-09-27 04:00] VITALS: BP_SYST 137; BP_SYST 176; BP_DIAS 65; BP_DIAS 71
[2022-09-27] MEDS: SODIUM CHLORIDE 0.9% 1,000 ML IV SCH ×2 (06:49→11:20)
[2022-09-27] MEDS: BLOOD SUGAR DIAGNOSTIC STRIP TEST SCH ×4 (06:49→21:28)
[2022-09-27] MEDS: INSULIN LISPRO 100 UNITS/ML SUBCUT SCH ×4 (06:49→21:00)
[2022-09-27 07:43] LABS: BASOPHILS % 0.7 % (0.0-2.0); EOSINOPHILS % 2.2 % (0.0-5.0); HEMATOCRIT. 39.3 % (36.0-48.0); HEMOGLOBIN. 13.7 g/dL (12.0-16.0); LYMPHOCYTES % 23.8 % (20.0-50.0); MEAN CORPUSCULAR VOLUME 97.4 fL (81.0-99.0); MEAN PLATELET VOLUME 10.4 fl (7.4-10.4); MONOCYTES % 7.4 % (2.0-8.0); NEUTROPHILS % 65.9 % (40.0-76.0); PLATELET 127 x1000/uL (130-400); RED BLOOD CELL COUNT 4.04 mill/uL (4.2-5.4); RED CELL DISTRIBUTION WIDTH 12.8 % (11.6-14.6)
[2022-09-27 08:00] VITALS: BP 148/58
[2022-09-27 08:29] LABS: CHLORIDE 108 mEq/L (98-107)
[2022-09-27 08:40] LABS: CREATINE KINASE MB FRACTION < 1.0 ng/mL (0.5-3.6)
[2022-09-27] MEDS: LISINOPRIL 20MG TABLET PO SCH ×2 (10:20→17:46)
[2022-09-27] MEDS: ENOXAPARIN 30MG/0.3ML SYR SUBCUT SCH (10:21)
[2022-09-27] MEDS: INSULIN GLARGINE 100 UNITS/ML SUBCUT SCH ×2 (10:42→21:29)
[2022-09-27 12:00] VITALS: BP 133/63
[2022-09-27 16:00] VITALS: BP_SYST 175; BP_SYST 176; BP_DIAS 71; BP_DIAS 77
[2022-09-27] MEDS: CEFTRIAXONE 1,000 MG in DEXTROSE 5% WATER 50 ML IV SCH (19:15)
[2022-09-27 20:00] VITALS: BP 125/69
[2022-09-27] MEDS: QUETIAPINE FUMARATE 25MG TABLET PO SCH (21:23)
[2022-09-28] VITALS: BP 140/65
[2022-09-28] MEDS: SODIUM CHLORIDE 0.9% 1,000 ML IV SCH ×2 (00:40→22:35)
[2022-09-28 03:47] VITALS: BP 156/69
[2022-09-28] MEDS: BLOOD SUGAR DIAGNOSTIC STRIP TEST SCH ×4 (07:27→21:46)
[2022-09-28] MEDS: INSULIN LISPRO 100 UNITS/ML SUBCUT SCH ×4 (07:27→21:42)
[2022-09-28 08:00] VITALS: BP 166/49
[2022-09-28] MEDS: ENOXAPARIN 30MG/0.3ML SYR SUBCUT SCH (10:16)
[2022-09-28] MEDS: LISINOPRIL 20MG TABLET PO SCH ×2 (10:17→18:26)
[2022-09-28] MEDS: INSULIN GLARGINE 100 UNITS/ML SUBCUT SCH ×2 (10:19→21:46)
[2022-09-28] MEDS ORDERED: SULF1TAB48 MT (11:34)
[2022-09-28 12:00] VITALS: BP 138/86
[2022-09-28 16:00] VITALS: BP 156/89
[2022-09-28] MEDS: CEFTRIAXONE 1,000 MG in DEXTROSE 5% WATER 50 ML IV SCH (18:22)
[2022-09-28 20:00] VITALS: BP 153/88
[2022-09-28] MEDS: QUETIAPINE FUMARATE 25MG TABLET PO SCH (21:29)
[2022-09-29] MEDS: SODIUM CHLORIDE 0.9% 1,000 ML IV SCH ×2 (03:20→22:24)
[2022-09-29 04:00] VITALS: BP 151/83
[2022-09-29] MEDS: INSULIN LISPRO 100 UNITS/ML SUBCUT SCH ×4 (06:35→22:25)
[2022-09-29] MEDS: BLOOD SUGAR DIAGNOSTIC STRIP TEST SCH ×4 (06:35→21:00)
[2022-09-29 08:00] VITALS: BP 145/49
[2022-09-29] MEDS: LISINOPRIL 20MG TABLET PO SCH ×2 (09:04→18:05)
[2022-09-29] MEDS: ENOXAPARIN 30MG/0.3ML SYR SUBCUT SCH (09:04)
[2022-09-29 12:00] VITALS: BP 97/71
[2022-09-29] MEDS: INSULIN GLARGINE 100 UNITS/ML SUBCUT SCH ×2 (12:32→22:24)
[2022-09-29 16:00] VITALS: BP 130/66
[2022-09-29] MEDS: CEFTRIAXONE 1,000 MG in DEXTROSE 5% WATER 50 ML IV SCH (18:05)
[2022-09-29 20:00] VITALS: BP 127/44
[2022-09-29] MEDS: QUETIAPINE FUMARATE 25MG TABLET PO SCH (22:24)
[2022-09-30] VITALS: BP 119/56
[2022-09-30 04:00] VITALS: BP 140/69
[2022-09-30] MEDS: SODIUM CHLORIDE 0.9% 1,000 ML IV SCH ×2 (06:24→18:52)
[2022-09-30] MEDS: INSULIN LISPRO 100 UNITS/ML SUBCUT SCH ×4 (07:35→20:57)
[2022-09-30] MEDS: BLOOD SUGAR DIAGNOSTIC STRIP TEST SCH ×5 (07:35→20:57)
[2022-09-30 08:00] VITALS: BP 170/64
[2022-09-30] MEDS: LISINOPRIL 20MG TABLET PO SCH ×2 (09:12→17:33)
[2022-09-30] MEDS: ENOXAPARIN 30MG/0.3ML SYR SUBCUT SCH (09:13)
[2022-09-30] MEDS: INSULIN GLARGINE 100 UNITS/ML SUBCUT SCH ×2 (09:14→20:57)
[2022-09-30 12:00] VITALS: BP 130/94
[2022-09-30 16:00] VITALS: BP 141/76
[2022-09-30] MEDS: CEFTRIAXONE 1,000 MG in DEXTROSE 5% WATER 50 ML IV SCH (17:34)
[2022-09-30 20:00] VITALS: BP 116/65
[2022-09-30] MEDS: QUETIAPINE FUMARATE 25MG TABLET PO SCH (20:56)
[2022-10-01] VITALS: BP 116/59
[2022-10-01 04:00] VITALS: BP 120/48
[2022-10-01] MEDS: INSULIN LISPRO 100 UNITS/ML SUBCUT SCH ×3 (07:51→17:55)
[2022-10-01 08:00] VITALS: BP 107/75
[2022-10-01] MEDS: LISINOPRIL 20MG TABLET PO SCH ×2 (10:31→18:37)
[2022-10-01] MEDS: ENOXAPARIN 30MG/0.3ML SYR SUBCUT SCH (10:31)
[2022-10-01] MEDS: INSULIN GLARGINE 100 UNITS/ML SUBCUT SCH (10:32)
[2022-10-01] MEDS: SODIUM CHLORIDE 0.9% 1,000 ML IV SCH (10:38)
[2022-10-01 12:00] VITALS: BP 126/65
[2022-10-01] MEDS: BLOOD SUGAR DIAGNOSTIC STRIP TEST SCH ×2 (13:32→17:44)
[2022-10-01 16:00] VITALS: BP 133/66
[2022-10-01] MEDS: CEFTRIAXONE 1,000 MG in DEXTROSE 5% WATER 50 ML IV SCH (18:37)
[2022-10-01 18:49] VITALS: BP 133/66
== END 2022-10-01 23:20 | disposition home or self-care (01) | DRG 312 ==
LOC: ER 12:15 → EDBEDREQTM 16:27 → EDBEDREQ 16:27 → ENRESERV 17:31 → 7EST 20:47 → 7WST 09-28 03:40
PROVIDERS: ADMIT Internal Medicine; ATTEND Internal Medicine
DX: I95.1 Orthostatic hypotension (principal); N39.0 Urinary tract infection, site not specified; E11.649 Type 2 diabetes mellitus with hypoglycemia without coma; E11.65 Type 2 diabetes mellitus with hyperglycemia; I44.0 Atrioventricular block, first degree; F03.90 Unspecified dementia, unspecified severity, without behavioral disturbance, psychotic disturbance, mood disturbance, and anxiety; I10 Essential (primary) hypertension; E86.0 Dehydration; D72.819 Decreased white blood cell count, unspecified; E78.00 Pure hypercholesterolemia, unspecified; Z79.84 Long term (current) use of oral hypoglycemic drugs; Z79.899 Other long term (current) drug therapy; Z79.4 Long term (current) use of insulin; Z86.73 Personal history of transient ischemic attack (TIA), and cerebral infarction without residual deficits
CPT/HCPCS: 36415; 71045; 80048; 80053; 81003; 82010; 82553; 82962; 83036; 83880; 84484; 85025; 93005; 93306; 99285; J0696; J1650; J1815; J7030; J7060